=== PATIENT | male | born 1975 | race Caucasian/White ===

== ENCOUNTER → 2019-05-02 | Outpatient (CLI) | payer OTHER ==
[2013-12-08 11:35] VITALS: BP 163/69
[~2019-05-02] MED LIST: BUPIVACAINE MPF 0.5% 10 ML VIAL for KCIC. IJ ONE; CIPR500T94 PO; HYDR-2678 PO; IOHEXOL 300 MG/ML 50 ML VIAL. INT ART ONE; LIDOCAINE 1% Multi-Dose 20 ML VIAL. ID ONE; MULT-18 PO; methylPREDNISolone ACETATE 40 MG/ML VIAL. INT ART ONE
--- NOTE | 2019-05-03 15:19 | KCIC ---
EXAM: FLUOROSCOPY GUIDED RIGHT HIP steroid injection History: Degenerative changes, pain COMPARISON: None available TECHNIQUE: Consent: An informed consent was obtained from the patient prior to the procedure. Appropriate time out procedures were performed. The skin was prepped and draped in the usual fashion under aseptic precautions. 1% lidocaine was utilized for local anesthesia. Under fluoroscopic guidance a 22 gauge long spinal needle was used to access the hip joint. A mixture of 4 mL lidocaine, 4 mL of Omnipaque 300, 4 mL of bupivacaine and 80 mg of Depo-Medrol was injected. 22 seconds of total fluoroscopy time was utilized. Total fluoroscopic images 1. No immediate complications. IMPRESSION: Technically successful fluoroscopic-guided right hip arthrogram Electronically signed by: Favian Murry MD (05/03/2019 3:16 PM) [id number]
== END | disposition home or self-care (01) ==
LOC: KCIC 15:19
PROVIDERS: ATTEND Orthopaedic Surgery
DX: M16.11 Unilateral primary osteoarthritis, right hip (principal)
CPT/HCPCS: 20610; 77002; J1030; Q9967